=== PATIENT | female | born 1940 | race Caucasian/White ===

== ENCOUNTER 2020-08-22 14:50 | Emergency (ER) | payer MEDICARE ==
[~2020-08-22] VITALS: Ht 157.5 cm; Wt 51.7 kg
[2020-08-22] MEDS ORDERED: ACETAMINOPHEN 325 MG TAB PO ONE (15:15)
== END 2020-08-22 16:50 | disposition home or self-care (01) ==
LOC: ER 15:34
DX: M25.562 Pain in left knee (principal); R07.81 Pleurodynia; I63.9 Cerebral infarction, unspecified; W01.0XXA Fall on same level from slipping, tripping and stumbling without subsequent striking against object, initial encounter; Y92.008 Other place in unspecified non-institutional (private) residence as the place of occurrence of the external cause
CPT/HCPCS: 70450; 71045; 72170; 99284